=== PATIENT | female | born 1935 | race Asian ===

== ENCOUNTER 2018-05-23 13:47 | Emergency (ER) | payer MEDICARE, OTHER ==
[2018-05-23] MEDS: HYDROCODONE/APAP (5/325) TAB PO (14:37)
[2018-05-23] MEDS: IBUPROFEN 200 MG TAB PO (15:18)
== END 2018-05-23 15:58 | disposition home or self-care (01) ==
LOC: E/R 13:47
DX: S00.03XA Contusion of scalp, initial encounter (principal); I10 Essential (primary) hypertension; E11.9 Type 2 diabetes mellitus without complications; V00.838A Other accident with motorized mobility scooter, initial encounter; W10.1XXA Fall (on)(from) sidewalk curb, initial encounter; Y92.9 Unspecified place or not applicable; Z79.84 Long term (current) use of oral hypoglycemic drugs
CPT/HCPCS: 70450; 99284-25